=== PATIENT | female | born 1940 | race Caucasian/White ===

== ENCOUNTER 2022-04-18 12:16 | Emergency (ER) | payer SELFPAY ==
[~2022-04-18] VITALS: Ht 154.9 cm; Wt 61.4 kg
[2022-04-18 12:18] VITALS: BP 170/90
== END 2022-04-18 19:13 | disposition left against medical advice (07) ==
LOC: M ED 12:16
DX: Z53.21 Procedure and treatment not carried out due to patient leaving prior to being seen by health care provider (principal)

== ENCOUNTER 2023-06-07 09:57 | Emergency (ER) | payer MEDICARE, SELFPAY ==
[~2023-06-07] VITALS: Ht 154.9 cm; Wt 60.3 kg
[2023-06-07] MEDS ORDERED: NORCO, ANEXSIA 5/325MG TABLET (HYDROcodone/ACETAMINOPHEN) PO ONE (10:35)
[2023-06-07] MEDS: MORPHINE 2 MG/ML 1ML VIAL IV PRN ×2 (12:04→13:01)
[2023-06-07 12:19] LABS: BASO # 0.1 10^3/uL (0.0-0.2); BASO % 0.6 % (0.0-1.0); EOS # 0.3 10^3/uL (0.0-0.5); HEMATOCRIT 44.4 % (36.0-47.0); LYMPH # 1.5 10^3/uL (1.5-5.0); LYMPH % 10.6 % (24.0-44.0); MEAN CORPUSCULAR HEMOGLOBIN 31.2 pg (27.0-33.0); MEAN CORPUSCULAR HGB CONC 33.8 g/dl (32.0-36.5); MEAN CORPUSCULAR VOLUME 92.3 fl (80.0-96.0); MONO # 1.1 10^3/uL (0.0-0.8); MONO % 7.6 % (2.0-8.0); NEUTROPHILS # 11.3 10^3/uL (1.5-8.5); NEUTROPHILS % 78.7 % (36.0-66.0); PLATELET COUNT, AUTOMATED 336 10^3/uL (150-450); RED BLOOD COUNT 4.81 10^6/uL (4.00-5.40); WHITE BLOOD COUNT 14.3 10^3/uL (4.0-10.0)
[2023-06-07 12:41] LABS: BLOOD UREA NITROGEN 17 MG/DL (9-23); CALCIUM LEVEL 9.3 MG/DL (8.3-10.6); CARBON DIOXIDE LEVEL 28 MMOL/L (20-31); CHLORIDE LEVEL 104 MMOL/L (98-107); GLOMERULAR FILTRATION RATE > 60.0 (>32); GLUCOSE, FASTING 109 MG/DL (74-106); POTASSIUM SERUM 4.4 MMOL/L (3.5-5.1); SODIUM LEVEL 141 MMOL/L (136-145)
[2023-06-07] MEDS ORDERED: MIDAZOLAM INJ 2MG/2ML VIAL IV STA (13:24)
[2023-06-07] MEDS ORDERED: LABETALOL 100MG/20ML VIAL IV STA (15:06)
[2023-06-07 15:14] VITALS: BP 203/98
[2023-06-07] MEDS ORDERED: LIDO5DIS41 TD (16:18)
[2023-06-07] MEDS ORDERED: HYDR-3713 PO ×2 (16:19→16:36)
[2023-06-07] MEDS ORDERED: CHLO125TA PO (16:21)
[2023-06-07 16:33] VITALS: TEMP 97.8; O2SAT 92
[2023-06-07 16:45] VITALS: BP 169/82
== END 2023-06-07 17:15 | disposition home or self-care (01) ==
LOC: EDBD 09:57 → M ED 09:57
DX: S22.080A Wedge compression fracture of T11-T12 vertebra, initial encounter for closed fracture (principal); W19.XXXA Unspecified fall, initial encounter; I10 Essential (primary) hypertension; Y92.009 Unspecified place in unspecified non-institutional (private) residence as the place of occurrence of the external cause; Y93.9 Activity, unspecified; Y99.9 Unspecified external cause status; Z79.1 Long term (current) use of non-steroidal anti-inflammatories (NSAID); Z79.891 Long term (current) use of opiate analgesic; Z79.899 Other long term (current) drug therapy
CPT/HCPCS: 70450; 71101; 72125; 72128; 72131; 72146; 80048; 85025; 96374; 96375; 96376; 99285; J1920; J2250

== ENCOUNTER → 2023-07-17 | Outpatient (CLI) | payer MEDICARE ==
[~2023-07-17] MED LIST: CHLO125TA PO; HYDR-3713 PO; LIDO5DIS41 TD
== END ==
LOC: M SOG 07:55
PROVIDERS: ATTEND Orthopaedic Surgery
DX: M54.6 Pain in thoracic spine (principal); M54.50 Low back pain, unspecified; M43.17 Spondylolisthesis, lumbosacral region; M48.56XA Collapsed vertebra, not elsewhere classified, lumbar region, initial encounter for fracture